=== PATIENT | male | born 1965 | race African-American/Black ===

== ENCOUNTER 2018-06-11 21:33 | Emergency (ER) | payer OTHER ==
[~2018-06-11] VITALS: Ht 177.8 cm; Wt 59.0 kg
[~2018-06-11 21:33] MED LIST: ACCUNEB SO1.25 MG/1 INH; CLONIDINE0.1 PO; HYDROCHLOROTHIA25 M2 PO; LIPITOR 20 MG T20 M1 PO; LISINOPRIL20 MG PO; LOPERAMIDE2 MG PO; NITROGLYCERIN0.4 MG SUBLING; NORCO 5-325 TA1 EACH PO; NORVASC10 MG PO; PERCOCET 5-3251 EACH PO; PLAVIX 75 MG TA75 M1 PO; RIBAVIRIN200 MG PO; TIVICAY50 MG PO; TOPROL XL100 MG PO; TRUVADA 200 MG1 EACH PO; VENTOLIN HFA 1818 GM INH; VIEKIRA PAK1 EACH PO
[2018-06-12 02:01] VITALS: BP 126/87
== END 2018-06-12 02:02 | disposition home or self-care (01) ==
LOC: ER 21:33
DX: S83.8X1A Sprain of other specified parts of right knee, initial encounter (principal); C49.21 Malignant neoplasm of connective and soft tissue of right lower limb, including hip; Z96.651 Presence of right artificial knee joint; F17.210 Nicotine dependence, cigarettes, uncomplicated; I10 Essential (primary) hypertension; J45.909 Unspecified asthma, uncomplicated; E78.00 Pure hypercholesterolemia, unspecified; K21.9 Gastro-esophageal reflux disease without esophagitis; E78.5 Hyperlipidemia, unspecified; Z21 Asymptomatic human immunodeficiency virus [HIV] infection status; Z88.5 Allergy status to narcotic agent; Z88.6 Allergy status to analgesic agent; Z88.8 Allergy status to other drugs, medicaments and biological substances; Z88.0 Allergy status to penicillin; Z88.2 Allergy status to sulfonamides; Z95.5 Presence of coronary angioplasty implant and graft; W18.39XA Other fall on same level, initial encounter; Y92.89 Other specified places as the place of occurrence of the external cause; Y93.89 Activity, other specified; Y99.8 Other external cause status

== ENCOUNTER 2019-02-21 03:28 | Emergency (ER) | payer OTHER ==
[~2019-02-21] VITALS: Ht 177.8 cm; Wt 72.6 kg
[2019-02-21 04:27] LABS: HEMOGLOBIN 11.4 gm/dL (14.0-18.0); MCH 31.4 pg (26.0-34.0); MCHC 33.6 g/dL (28.0-37.0); MCV 93.4 fL (80.0-100.0); PLATELET COUNT 240 thou/uL (150-400); RBC 3.64 mil/uL (4.50-6.00); RDW 14.6 % (10.5-14.5); WBC 10.3 thou/uL (4.0-11.0)
[2019-02-21 04:45] LABS: APTT 32.9 Seconds (24.5-32.8); INR 1.1
[2019-02-21 04:55] LABS: ALBUMIN 2.9 g/dL (3.4-5.0); ANION GAP 10 mmol/L (7-16); BUN 17 mg/dL (7-18); CALCIUM 9.4 mg/dL (8.5-10.1); CHLORIDE 99 mmol/L (98-107); CO2 27 mmol/L (21-32); CREATININE 1.7 mg/dL (0.7-1.3); GLUCOSE 117 mg/dL (74-106); SGOT 17 U/L (15-37); SGPT 10 U/L (30-65); SODIUM 136 mmol/L (136-145); TOTAL BILIRUBIN 0.3 mg/dL (<0.1-1.0); TOTAL PROTEIN 7.5 g/dL (6.4-8.2); TROPONIN-I <0.06 ng/mL (<0.06)
[2019-02-21 04:57] LABS: POTASSIUM 2.9 mmol/L (3.5-5.1)
[2019-02-21 05:01] LABS: ABSOLUTE NEUTROPHILS 4.6 thou/uL (1.4-8.2)
[2019-02-21] MEDS ORDERED: NORCO 5-325 TA1 EAC1 PO (06:11)
[2019-02-21] MEDS ORDERED: NORFLEX100 MG PO (06:11)
[2019-02-21] MEDS ORDERED: POTASSIUM20 PO (06:12)
[2019-02-21 06:39] VITALS: BP 172/102
--- NOTE | 2019-02-21 07:49 | EKG ---
[address] [place] [address] ELECTROCARDIOGRAM REPORT Name: AMRIT MONCADA [id number] Admission: 02/21/19 Attend Phys: Discharge: 02/21/19 Date of : 61 Report #: [id number] THIS REPORT FOR: //name// [facility] ED Test Date: 2019-02-21 Test Time: 04:27:43 Pat Name: AMRIT MONCADA Department: Room: Gender: Street Sweeper: [facility] : 1965 Requested By: Barrera Hogan Order Number: [id number] MD: Fabien Fofana Measurements Intervals [place] Rate: 68 P: 58 PA: 170 QRS: 22 QRSD: 89 T: -71 QT: 434 QTc: 462 Interpretive Statements Sinus rhythm Nonspecific ST and T wave abnormality Compared to ECG 02/29/2016 07:10:13 ST and T wave abnormality is now present Prolonged QT interval no longer present Electronically Signed On 02-21-2019 7:48:51 LOCK INSTALLER by Fabien Fofana [email or web address] <ELECTRONICALLY SIGNED> By: Fabien Fofana MD, [facility] 02/21/19 0748 0427 042 Fabien Fofana MD, [facility] /EPI
== END 2019-02-21 06:39 | disposition home or self-care (01) ==
LOC: ER 03:28
PROVIDERS: Emergency Medicine
DX: M43.6 Torticollis (principal); I82.B22 Chronic embolism and thrombosis of left subclavian vein; E87.6 Hypokalemia; E88.09 Other disorders of plasma-protein metabolism, not elsewhere classified; R07.89 Other chest pain; K21.9 Gastro-esophageal reflux disease without esophagitis; J45.909 Unspecified asthma, uncomplicated; I10 Essential (primary) hypertension; R79.89 Other specified abnormal findings of blood chemistry; F17.210 Nicotine dependence, cigarettes, uncomplicated; Z88.5 Allergy status to narcotic agent; Z88.2 Allergy status to sulfonamides; Z88.0 Allergy status to penicillin; Z88.6 Allergy status to analgesic agent; Z95.5 Presence of coronary angioplasty implant and graft; Z86.19 Personal history of other infectious and parasitic diseases; Z96.651 Presence of right artificial knee joint

== ENCOUNTER 2019-05-17 08:36 | Emergency (ER) | payer OTHER ==
[~2019-05-17] VITALS: Ht 175.3 cm; Wt 68.0 kg
[~2019-05-17 08:36] MED LIST changes: +NORCO 5-325 TA1 EAC1 PO; +NORFLEX100 MG PO; +POTASSIUM20 PO
[2019-05-17 10:10] VITALS: BP 163/99
[2019-05-17 10:13] LABS: HEMATOCRIT 40.3 % (42.0-52.0); HEMOGLOBIN 13.4 gm/dL (14.0-18.0); MCH 30.6 pg (26.0-34.0); MCHC 33.1 g/dL (28.0-37.0); MCV 92.3 fL (80.0-100.0); PLATELET COUNT 129 thou/uL (150-400); RBC 4.37 mil/uL (4.50-6.00); RDW 14.6 % (10.5-14.5); WBC 4.6 thou/uL (4.0-11.0)
[2019-05-17 10:23] LABS: CALCIUM 8.7 mg/dL (8.5-10.1); CREATININE 2.4 mg/dL (0.7-1.3); TROPONIN-I 0.25 ng/mL (<0.06)
[2019-05-17 10:42] LABS: POTASSIUM 2.9 mmol/L (3.5-5.1)
[2019-05-17 11:18] LABS: ABSOLUTE NEUTROPHILS 1.7 thou/uL (1.4-8.2); METAMYELOCYTES 1 %; PLATELET ESTIMATE NORMAL
[2019-05-18] MEDS ORDERED: XIFAXAN550 M1 PO ×2 (06:38→10:13)
--- NOTE | 2019-05-18 07:52 | EKG ---
[facility] [address] [place] [address] ELECTROCARDIOGRAM REPORT Name: ANTWANAMRIT Room #: DEP CHILO Reeves#: [id number] Admission: 05/17/19 Attend Phys: Discharge: 05/17/19 Date of : 61 Report #: [id number] THIS REPORT FOR: //name// [facility] ED Test Date: 2019-05-17 Test Time: 08:39:25 Pat Name: MARIT MONCADA Department: Room: Gender: Director Of Spa And Guest Experience: [facility] : 1965 Requested By: Danny Sherman Order Number: [id number] MD: Fabien Fofana Measurements Intervals [place] Rate: 96 P: 84 [place]: 139 QRS: 66 QRSD: 81 T: -77 QT: 412 QTc: 521 Interpretive Statements Sinus tachycardia Multiple premature complexes, supraven Left ventricular hypertrophy Abnormal T, consider ischemia, inferior leads Prolonged QT interval no previous ECGs available for comparison Electronically Signed On 05-18-2019 7:51:51 SPORTS INSTRUCTOR by Fabien Fofana [email or web address] <ELECTRONICALLY SIGNED> By: Fabien Fofana MD, [facility] 05/18/19 0751 D: 01/838 8 Fabien Fofana MD, FACC /EPI
[2019-05-18] MEDS ORDERED: [UNRECOGNIZED DRUG - OTHER] PO (09:41)
[2019-05-18] MEDS ORDERED: ONDANSETRON ODT4 MG PO (09:42)
[2019-05-18] MEDS ORDERED: EPIPEN 2-P0.3 MG/0.3 IM (09:44)
[2019-05-18] MEDS ORDERED: TRIUMEQ TABLET1 EACH PO (09:45)
[2019-05-18] MEDS ORDERED: PROAIR HFA8.5 GM INH (09:47)
[2019-05-18] MEDS ORDERED: AMITRIPTYLINE H10 M1 PO (09:48)
[2019-05-18] MEDS ORDERED: BACLOFEN 10MG T10 MG PO (09:49)
[2019-05-18] MEDS ORDERED: PULMICORT0.5 MG/2 M INH (09:50)
[2019-05-18] MEDS ORDERED: PERIDEX 0.12%473 M1 SWISH&SPIT (09:52)
[2019-05-18] MEDS ORDERED: PLAVIX 75 MG TA75 MG PO (09:53)
[2019-05-18] MEDS ORDERED: DIAZEPAM 5 MG5 M1 PO (09:54)
[2019-05-18] MEDS ORDERED: FLEXERIL PO (09:54)
[2019-05-18] MEDS ORDERED: BENTYL 20 MG TA20 M1 PO (09:55)
[2019-05-18] MEDS ORDERED: SENOKOT-S1 TA2 PO (09:57)
[2019-05-18] MEDS ORDERED: MARINOL5 MG PO (09:58)
[2019-05-18] MEDS ORDERED: FLONASE 0.05%50 MCG NASAL (09:59)
[2019-05-18] MEDS ORDERED: LACTULOSE PO (10:00)
[2019-05-18] MEDS ORDERED: LEVAQUIN 750 M750 MG PO (10:02)
[2019-05-18] MEDS ORDERED: REGLAN 10 MG TA10 MG PO (10:03)
[2019-05-18] MEDS ORDERED: OMEPRAZOLE40 MG PO (10:04)
[2019-05-18] MEDS ORDERED: OXYCODONE PO (10:06)
[2019-05-18] MEDS ORDERED: PERCOCET 10-321 EAC1 PO (10:07)
[2019-05-18] MEDS ORDERED: KLOR-CON 10 ER10 MEQ PO (10:08)
[2019-05-18] MEDS ORDERED: ZANTAC 150MG T150 M1 PO (10:09)
[2019-05-18] MEDS ORDERED: FLOMAX0.4 MG PO (10:11)
[2019-05-18] MEDS ORDERED: TRAZODONE 150150 M1 PO (10:12)
[2019-05-18] MEDS ORDERED: VIIBRYD40 MG PO (10:12)
[2019-05-18] MEDS ORDERED: LIPITOR 20 MG T20 M1 PO (16:38)
== END 2019-05-17 13:58 | disposition left against medical advice (07) ==
LOC: ER 08:36
PROVIDERS: Emergency Medicine
DX: I21.4 Non-ST elevation (NSTEMI) myocardial infarction (principal); B37.9 Candidiasis, unspecified; R79.89 Other specified abnormal findings of blood chemistry; I10 Essential (primary) hypertension; J45.909 Unspecified asthma, uncomplicated; E78.00 Pure hypercholesterolemia, unspecified; K21.9 Gastro-esophageal reflux disease without esophagitis; Z21 Asymptomatic human immunodeficiency virus [HIV] infection status; F17.210 Nicotine dependence, cigarettes, uncomplicated; Z88.5 Allergy status to narcotic agent; Z88.0 Allergy status to penicillin; Z88.6 Allergy status to analgesic agent; Z88.2 Allergy status to sulfonamides

== ENCOUNTER 2019-05-17 18:18 | Inpatient (IN) | payer OTHER ==
[~2019-05-17] VITALS: Ht 152.4 cm; Wt 61.7 kg
--- NOTE | ~2019-05-17 | HC ---
[facility] [address] CONSULTATION Name: ANTWANAMRIT Room #: 218-P ADM IN M.R.#: [id number] Admission: 05/17/19 Attend Phys: Efrain Gutierrez MD Discharge: Date of : 61 Report #: [id number] THIS REPORT FOR: //name// CC: ANTOLIN Gutierrez Physician staff DATE OF SERVICE: 05/17/2019 CARDIOLOGY CONSULT HISTORY OF PRESENT ILLNESS: The patient is a 53-year-old male. He apparently only has old records here and he apparently has a history of 2 stents placed in [place], [place] and he splits his time between here and [place] and back in 2013. He does not think he has had any recent medical followup, at least no Cardiology followup. He has been having pain on and off since he returned from [facility] 3 days ago, but had been somebody who might so had been sick on the plane and his sister obtained bronchitis from him. He denies fever or chills. His initial troponin, however, was 2.5 and then the repeat tonight after he left had AMA this morning and returned with chest pain is 2.9. Still he has some sort of low level of pain, but the EKG does not have a current of injury. He is allegedly compliant with medications, which are supposed to be metoprolol, Plavix, albuterol, amlodipine 10, clonidine 0.1 b.i.d., lisinopril 20, ALTHOUGH IT IS LISTED HE IS ALLERGIC TO LISINOPRIL and ribavirin 600 b.i.d. and Truvada 300 mg tablet every morning. PAST MEDICAL HISTORY: Positive for hypertension, hypercholesterolemia, although not taking any current cholesterol medicine for some reason, coronary artery disease with a limited infarct and 2 stents placed, he does not know which vessel in 2013. Musculoskeletal issues, reflux, nonalcoholic cirrhosis, HIV positive, umbilical hernia repair, history prior tobacco use and anterior neck fusion. ALLERGIES: CODEINE, NSAIDS, PENICILLIN, SULFA, TRAMADOL, ACETAMINOPHEN, ASPIRIN, I will question this; LIDOCAINE, CODEINE, TORADOL. SOCIAL HISTORY: He has children. He lives in both [place] and [place]. He has a sister who is in the room who lives next to him and helps him. He is a tobacco user, although he states he has quit 3 days ago. No alcohol use, no drug use currently. FAMILY HISTORY: Positive for premature coronary artery disease. REVIEW OF SYSTEMS: Negative except for stated above, some nocturia and recent exposure to possible influenza. [address] [address] CONSULTATION Name: AMRIT MONCADA Room #: 218-P ADM IN M.R.#: [id number] Admission: 05/17/19 Attend Phys: Efrain Gutierrez MD Discharge: Date of : 61 Report #: [id number] LABORATORY DATA: Troponin 2.9 tonight. Creatinine was 2.4. Troponin initially 0.16, 0.25 now, there is some question. So, these are very equivocal troponin in light of the renal insufficiency. PHYSICAL EXAMINATION: GENERAL: He is alert. He does not seem to be in distress, although he states he does have some chest pain. VITAL SIGNS: Blood pressure 158/100, pulse is 70s. HEENT: Eyes show xanthelasmas. Pharynx is clear. NECK: Shows preserved upstrokes without JVD. LUNGS: Clear anteriorly. CARDIOVASCULAR: Regular rate and rhythm, S1, S2 distant. ABDOMEN: Slender, nontender, slight discomfort in the epigastric. EXTREMITIES: Show no edema. His pulse is intact. NEUROLOGIC: Nonfocal. SKIN: Warm and dry without xanthoma or ulcer. MUSCULOSKELETAL: No gross joint deformity. ASSESSMENT: 1. Chest pain of unclear etiology with equivocal troponin. 2. Troponin elevation, trivial in light of renal insufficiency, not diagnostic for a true ischemic event. 3. Coronary artery disease by history with prior stents. 4. Hypertension. 5. Suspected hypercholesterolemia. 6. Human immunodeficiency virus positive. 7. Suspected relative noncompliance. RECOMMENDATIONS AND PLAN: We will give fluids for the renal. 8. Chronic kidney disease, acute on chronic. We will restart his blood pressure medications including antiplatelet therapy, EKG, troponin in the a.m. and echo Doppler in the a.m. With this equivocal troponin findings now, I would favor stress testing over catheterization, particularly in light of his renal insufficiency, so we will have to be careful of contrast, unless should be a change in the lab or the EKG, so further recommendations in the a.m. Discussed with the patient and his family. Thank you for asking me to assist in the care of this patient. By: [phone] /nt
--- NOTE | ~2019-05-17 | EKG ---
[place] [address] [address] [facility] [employer] [place] [address] ELECTROCARDIOGRAM REPORT Name: AMRIT MONCADA Room #: 218-P ADM IN M.R.#: [id number] Admission: 05/17/19 Attend Phys: Efrain Gutierrez MD Discharge: Date of : 61 Report #: [id number] THIS REPORT FOR: //name// [facility] Test Date: 2019-05-18 Test Time: 08:23:19 Pat Name: AMRIT MONCADA Department: Room: 218 P Gender: M Glass Furnace Tender: Azeb MCCORMACK : 1965 Requested By: Ariadna Griffiths Order Number: [id number] MD: Measurements Intervals [place] Rate: 61 P: 57 [place]: 159 QRS: 15 QRSD: 86 T: -89 QT: 455 QTc: 459 Interpretive Statements Sinus rhythm Nonspecific T abnormalities, lateral leads Compared to ECG 05/17/2019 21:42:37 T-wave abnormality now present [email or web address] By: 2 2 Epiphany Epiphany, /EPI
[2019-05-17 20:36] VITALS: BP 158/103
[2019-05-17 21:54] LABS: CREATININE 2.2 mg/dL (0.7-1.3); MAGNESIUM 2.4 mg/dL (1.8-2.4)
[2019-05-17 21:55] LABS: POTASSIUM 2.9 mmol/L (3.5-5.1)
[2019-05-17 22:18] VITALS: BP 168/100
[2019-05-17 22:19] LABS: CHOLESTEROL 151 mg/dL (<200); HDL CHOLESTEROL 40 mg/dL (>40); LDL CHOLESTEROL 64 mg/dL (<100); TC:HDL 3.8 Ratio (Not establshd); TRIGLYCERIDE 235 mg/dL (<150); VLDL 47 mg/dL (<40)
[2019-05-17 22:21] LABS: SERUM ASSESSMENT Clear
[2019-05-18 01:38] VITALS: BP 185/111
[2019-05-18 05:31] VITALS: BP 146/98
[2019-05-18] MEDS ORDERED: XIFAXAN550 M1 PO ×2 (06:38→10:13)
[2019-05-18 07:30] LABS: CALCIUM 8.4 mg/dL (8.5-10.1); CREATININE 1.6 mg/dL (0.7-1.3); TROPONIN-I 0.09 ng/mL (<0.06)
[2019-05-18 07:32] LABS: POTASSIUM 3.9 mmol/L (3.5-5.1)
--- NOTE | 2019-05-18 07:58 | EKG ---
[facility] [address] [email or web address] [address] ELECTROCARDIOGRAM REPORT Name: MONCADAAMRIT Room #: 218-P ADM IN M.R.#: [id number] Admission: 05/17/19 Attend Phys: Efrain Gutierrez MD Discharge: Date of : 61 Report #: [id number] THIS REPORT FOR: //name// [facility] Test Date: 2019-05-17 Test Time: 21:42:37 Pat Name: AMRIT MONCADA Department: Room: 218 P Gender: M Pneumatic Press Hand: Connor WILKINS : 1965 Requested By: Moody Colby Order Number: [id number] MD: Fabien Fofana Measurements Intervals [place] Rate: 78 P: 76 [place]: 153 QRS: 35 QRSD: 89 T: -54 QT: 435 QTc: 496 Interpretive Statements Sinus rhythm Probable LVH with secondary repol abnrm Borderline prolonged QT interval Compared to ECG 02/21/2019 04:27:43 No significant change was found Electronically Signed On 05-18-2019 7:57:20 CAPTAIN/AIRLINE PILOT by Fabien Fofana [email or web address] <ELECTRONICALLY SIGNED> By: Fabien Fofana MD, [facility] 05/18/19 0757 214 41 Fabien Fofana MD, [facility] /EPI
[2019-05-18 08:00] VITALS: BP 155/93
--- NOTE | 2019-05-18 08:00 | EKG ---
[address] [address] [facility] [place] [address] ELECTROCARDIOGRAM REPORT Name: AMRIT MONCADA Room #: 218-P ADM IN M.R.#: [id number] Admission: 05/17/19 Attend Phys: Efrain Gutierrez MD Discharge: Date of : 61 Report #: [id number] THIS REPORT FOR: //name// [facility] ED Test Date: 2019-05-17 Test Time: 18:26:13 Pat Name: AMRIT MONCADA Department: Room: 218 Gender: M Pole Cutter: GORDY : 1965 Requested By: Fiorella Alan Order Number: [id number] MD: Dylan Corley Measurements Intervals [place] Rate: 87 P: 75 [place]: 136 QRS: 60 QRSD: 86 T: -89 QT: 366 QTc: 441 Interpretive Statements Sinus rhythm Atrial premature complexes Probable left atrial enlargement Left ventricular hypertrophy Abnormal T, consider ischemia, inferior leads Compared to ECG 02/21/2019 04:27:43 Electronically Signed On 05-18-2019 7:59:23 ELECTRONIC TRAIN CONTROL TECHNICIAN by Dylan Corley [email or web address] <ELECTRONICALLY SIGNED> By: Dylan Corley MD 05/18/19 0759 25 25 Dylan Corley MD /RAÚL
[2019-05-18] MEDS ORDERED: [UNRECOGNIZED DRUG - OTHER] PO (09:41)
[2019-05-18] MEDS ORDERED: ONDANSETRON ODT4 MG PO (09:42)
[2019-05-18] MEDS ORDERED: EPIPEN 2-P0.3 MG/0.3 IM (09:44)
[2019-05-18] MEDS ORDERED: TRIUMEQ TABLET1 EACH PO (09:45)
[2019-05-18] MEDS ORDERED: PROAIR HFA8.5 GM INH (09:47)
[2019-05-18] MEDS ORDERED: AMITRIPTYLINE H10 M1 PO (09:48)
[2019-05-18] MEDS ORDERED: BACLOFEN 10MG T10 MG PO (09:49)
[2019-05-18] MEDS ORDERED: PULMICORT0.5 MG/2 M INH (09:50)
[2019-05-18] MEDS ORDERED: PERIDEX 0.12%473 M1 SWISH&SPIT (09:52)
[2019-05-18] MEDS ORDERED: PLAVIX 75 MG TA75 MG PO (09:53)
[2019-05-18] MEDS ORDERED: DIAZEPAM 5 MG5 M1 PO (09:54)
[2019-05-18] MEDS ORDERED: FLEXERIL PO (09:54)
[2019-05-18] MEDS ORDERED: BENTYL 20 MG TA20 M1 PO (09:55)
[2019-05-18] MEDS ORDERED: SENOKOT-S1 TA2 PO (09:57)
[2019-05-18] MEDS ORDERED: MARINOL5 MG PO (09:58)
[2019-05-18] MEDS ORDERED: FLONASE 0.05%50 MCG NASAL (09:59)
[2019-05-18] MEDS ORDERED: LACTULOSE PO (10:00)
[2019-05-18] MEDS ORDERED: LEVAQUIN 750 M750 MG PO (10:02)
[2019-05-18] MEDS ORDERED: REGLAN 10 MG TA10 MG PO (10:03)
[2019-05-18] MEDS ORDERED: OMEPRAZOLE40 MG PO (10:04)
[2019-05-18] MEDS ORDERED: OXYCODONE PO (10:06)
[2019-05-18] MEDS ORDERED: PERCOCET 10-321 EAC1 PO (10:07)
[2019-05-18] MEDS ORDERED: KLOR-CON 10 ER10 MEQ PO (10:08)
[2019-05-18] MEDS ORDERED: ZANTAC 150MG T150 M1 PO (10:09)
[2019-05-18] MEDS ORDERED: FLOMAX0.4 MG PO (10:11)
[2019-05-18] MEDS ORDERED: VIIBRYD40 MG PO (10:12)
[2019-05-18] MEDS ORDERED: TRAZODONE 150150 M1 PO (10:12)
--- NOTE | 2019-05-18 11:01 | 2DMMODE ---
[facility] [address] [place] [address] 2 D/M-MODE ECHOCARDIOGRAM Name: AMRIT MONCADA Room #: 218-P ADM IN M.R.#: [id number] Admission: 05/17/19 Attend Phys: Efrain Gutierrez MD Discharge: Date of : 61 Report #: [id number] THIS REPORT FOR: //name// APPROVED REPORT Study performed: 05/18/2019 09:32:29 EXAM: Comprehensive 2D, Doppler, and color-flow Echocardiogram Patient Location: Bedside Room #: 218 Status: routine BSA: 1.75 HR: 56 bpm BP: 155/93 mmHg Rhythm: Bradycardia Other Information Study Quality: Good Indications CAD Elevated Troponin Chest Pain Hypertension/HDD 2D Dimensions RVDd: 38.55 mm IVSd: 13.05 (7-11mm) LVOT Diam: 21.23 (18-24mm) LVDd: 49.04 mm PWd: 12.68 (7-11mm) Ascending Ao: 27.44 (22-36mm) LVDs: 37.33 (25-40mm) Aortic Root: 26.86 mm IVC: 17.00 mm Volumes Left Atrial Volume (Systole) Single Plane 4CH: 59.88 mL Single Plane 2CH: 53.30 mL LA ESV Index: 37.00 mL/m2 Aortic Valve AoV Peak Maldonado.: 1.20 m/s AO Peak Gr.: 5.80 mmHg LVOT Max P.96 mmHg LVOT Max V: 0.99 m/s BERTA Vmax: 2.92 cm2 Mitral Valve [facility] [address] [place] [address] 2 D/M-MODE ECHOCARDIOGRAM Name: AMRIT MONCADA Room #: 218-P [facility] IN Sundar.#: [id number] Admission: 05/17/19 Attend Phys: Efrain Gutierrez MD Discharge: Date of : 61 Report #: [id number] E/A Ratio: 0.7 MV Decel. Time: 428.93 ms MV E Max Maldonado.: 0.38 m/s MV A Maldonado.: 0.53 m/s MV PHT: 124.39 ms IVRT: 184.54 ms Pulmonary Valve PV Peak Maldonado.: 0.63 m/s PV Peak Gr.: 1.58 mmHg Pulmonary Vein P Vein S: 0.43 m/s P Vein A: 0.23 m/s P Vein D: 0.26 m/s P Vein A Dur.: 92.3 msec P Vein S/D Ratio: 1.65 Left Ventricle The left ventricle is normal size. There is normal LV segmental wall motion. Mild concentric left ventricular hypertrophy. Left ventricular systolic function is at the lower limits of normal. LVEF is 50%. Mild diastolic dysfunction is present (impaired relaxation pattern). Right Ventricle The right ventricle is normal size. The right ventricular systolic function is normal. Atria Left atrium is dilated. The right atrium size is normal. Aortic Valve The aortic valve is normal in structure. Trace aortic regurgitation. There is no aortic valvular stenosis. Mitral Valve The mitral valve is normal in structure. No mitral regurgitation. No evidence of mitral valve stenosis. Tricuspid Valve The tricuspid valve is normal in structure. There is no tricuspid valve regurgitation noted. Pulmonic Valve The pulmonary valve is normal in structure. There is no pulmonic valvular regurgitation. Great Vessels [facility] [address] [place] [address] 2 D/M-MODE ECHOCARDIOGRAM Name: AMRIT MONCADA Room #: 218-P ADM IN M.R.#: [id number] Admission: 05/17/19 Attend Phys: Efrain Gutierrez MD Discharge: Date of : 61 Report #: [id number] The aortic root is normal in size. IVC is normal in size and collapses >50% with inspiration. Pericardium There is no pericardial effusion. <Conclusion> Left ventricular systolic function is at the lower limits of normal. There is normal LV segmental wall motion. Mild concentric left ventricular hypertrophy. LVEF is 50%. Mild diastolic dysfunction. The aortic valve is normal in structure. Trace aortic regurgitation, no stenosis. The mitral valve is normal in structure. No mitral regurgitation Pulmonary artery pressure could not be reliably ascertained. There is no pericardial effusion. <ELECTRONICALLY SIGNED> By: Fabien Fofana MD, FACC 05/18/19 1100 1100 99 Fabien Fofana MD, [facility] /INF
[2019-05-18 14:00] VITALS: BP 178/111
[2019-05-18 15:30] VITALS: BP 147/86
[2019-05-18] MEDS ORDERED: LIPITOR 20 MG T20 M1 PO (16:38)
[2019-05-18 16:55] VITALS: BP 178/111
[2019-05-19 08:57] LABS: GLYCOHEMOGLOBIN (HGB A1C) 5.7 % (4.8-5.6)
== END 2019-05-18 18:16 | disposition home or self-care (01) | DRG 281 ==
LOC: ER 18:18 → EROBS 20:01 → 2N 20:56 → ENTRNSPT 05-18 18:00 → 2N 05-18 18:16
PROVIDERS: Nurse Practitioner Family; ADMIT Internal Medicine
DX: I21.4 Non-ST elevation (NSTEMI) myocardial infarction (principal); N17.9 Acute kidney failure, unspecified; B37.0 Candidal stomatitis; J45.909 Unspecified asthma, uncomplicated; E78.00 Pure hypercholesterolemia, unspecified; K21.9 Gastro-esophageal reflux disease without esophagitis; K74.60 Unspecified cirrhosis of liver; E87.6 Hypokalemia; E83.42 Hypomagnesemia; I12.9 Hypertensive chronic kidney disease with stage 1 through stage 4 chronic kidney disease, or unspecified chronic kidney disease; B37.9 Candidiasis, unspecified; I25.10 Atherosclerotic heart disease of native coronary artery without angina pectoris; F17.210 Nicotine dependence, cigarettes, uncomplicated; N18.9 Chronic kidney disease, unspecified; Z85.89 Personal history of malignant neoplasm of other organs and systems; Z92.21 Personal history of antineoplastic chemotherapy; Z92.3 Personal history of irradiation; Z83.3 Family history of diabetes mellitus; Z80.1 Family history of malignant neoplasm of trachea, bronchus and lung; I25.2 Old myocardial infarction; Z95.5 Presence of coronary angioplasty implant and graft; Z86.19 Personal history of other infectious and parasitic diseases; Z88.6 Allergy status to analgesic agent; Z88.0 Allergy status to penicillin; Z88.2 Allergy status to sulfonamides; Z88.8 Allergy status to other drugs, medicaments and biological substances; Z82.49 Family history of ischemic heart disease and other diseases of the circulatory system; Z80.51 Family history of malignant neoplasm of kidney; Z80.8 Family history of malignant neoplasm of other organs or systems; Z71.6 Tobacco abuse counseling; Z28.21 Immunization not carried out because of patient refusal; Z79.899 Other long term (current) drug therapy
CPT/HCPCS: 10081

== ENCOUNTER 2019-06-03 12:13 | Emergency (ER) | payer OTHER ==
[~2019-06-03] VITALS: Ht 177.8 cm; Wt 61.2 kg
[~2019-06-03 12:13] MED LIST changes: +AMITRIPTYLINE H10 M1 PO; +BACLOFEN 10MG T10 MG PO; +BENTYL 20 MG TA20 M1 PO; +DIAZEPAM 5 MG5 M1 PO; +EPIPEN 2-P0.3 MG/0.3 IM; +FLEXERIL PO; +FLOMAX0.4 MG PO; +FLONASE 0.05%50 MCG NASAL; +KLOR-CON 10 ER10 MEQ PO; +LACTULOSE PO; +LEVAQUIN 750 M750 MG PO; +MARINOL5 MG PO; +OMEPRAZOLE40 MG PO; +ONDANSETRON ODT4 MG PO; +OXYCODONE PO; +PERCOCET 10-321 EAC1 PO; +PERIDEX 0.12%473 M1 SWISH&SPIT; +PLAVIX 75 MG TA75 MG PO; +PROAIR HFA8.5 GM INH; +PULMICORT0.5 MG/2 M INH; +REGLAN 10 MG TA10 MG PO; +SENOKOT-S1 TA2 PO; +TRAZODONE 150150 M1 PO; +TRIUMEQ TABLET1 EACH PO; +VIIBRYD40 MG PO; +XIFAXAN550 M1 PO; +ZANTAC 150MG T150 M1 PO; +[UNRECOGNIZED DRUG - OTHER] PO
[2019-06-03 13:23] LABS: INR 1.1; PROTIME 11.2 Seconds (9.3-11.4)
[2019-06-03] MEDS ORDERED: NORCO 5-325 TA1 EAC1 PO (13:27)
[2019-06-03 13:54] VITALS: BP 169/103
== END 2019-06-03 13:54 | disposition home or self-care (01) ==
LOC: ER 12:13
PROVIDERS: Nurse Practitioner Family
DX: S93.491A Sprain of other ligament of right ankle, initial encounter (principal); M25.461 Effusion, right knee; R79.1 Abnormal coagulation profile; I10 Essential (primary) hypertension; J45.909 Unspecified asthma, uncomplicated; E78.00 Pure hypercholesterolemia, unspecified; I25.2 Old myocardial infarction; K21.9 Gastro-esophageal reflux disease without esophagitis; F17.210 Nicotine dependence, cigarettes, uncomplicated; Z98.890 Other specified postprocedural states; Z88.6 Allergy status to analgesic agent; Z88.5 Allergy status to narcotic agent; Z88.2 Allergy status to sulfonamides; Z88.0 Allergy status to penicillin; W00.0XXA Fall on same level due to ice and snow, initial encounter; Y92.89 Other specified places as the place of occurrence of the external cause; Y93.89 Activity, other specified; Y99.8 Other external cause status

== ENCOUNTER 2019-08-25 22:54 | Emergency (ER) | payer OTHER ==
[~2019-08-25] VITALS: Ht 177.8 cm; Wt 61.2 kg
[2019-08-25 23:48] LABS: HEMATOCRIT 27.8 % (42.0-52.0); HEMOGLOBIN 9.3 gm/dL (14.0-18.0); MCH 31.7 pg (26.0-34.0); MCHC 33.5 g/dL (28.0-37.0); MCV 94.7 fL (80.0-100.0); PLATELET COUNT 66 thou/uL (150-400); RBC 2.93 mil/uL (4.50-6.00); RDW 15.2 % (10.5-14.5); WBC 16.1 thou/uL (4.0-11.0)
[2019-08-25 23:57] LABS: CALCIUM 7.7 mg/dL (8.5-10.1); CREATININE 1.6 mg/dL (0.7-1.3); POTASSIUM 3.3 mmol/L (3.5-5.1)
[2019-08-26 00:02] LABS: ALBUMIN 2.8 g/dL (3.4-5.0); TOTAL BILIRUBIN 0.1 mg/dL (<0.1-1.0); TOTAL PROTEIN 6.3 g/dL (6.4-8.2)
[2019-08-26 00:19] VITALS: BP 169/98
[2019-08-26 01:02] LABS: METAMYELOCYTES 2 %; NUCLEATED RBCS 2 /100WBC
[2019-08-26 01:03] LABS: PLATELET ESTIMATE DECREASED
--- NOTE | 2019-08-26 08:44 | EKG ---
[facility] [place] [address] ELECTROCARDIOGRAM REPORT Name: VALARIE MONCADARON Room #: DEP CHILO Reeves#: [id number] Admission: 08/25/19 Attend Phys: Discharge: 08/26/19 Date of : 61 Report #: [id number] THIS REPORT FOR: cc: BRAD - Mela family physician/PCP BRAD - Mela family physician/PCP Fabien Fofana MD [facility] THIS REPORT FOR: //name// [facility] ED Test Date: 2019-08-25 Test Time: 23:31:27 Pat Name: AMRIT MONCADA Department: Room: Gender: Kosher Butcher: ANUPAMA : 1965 Requested By: Augustus Angelo Order Number: [id number] MD: Fabien Fofana Measurements Intervals [place] Rate: 78 P: 68 [place]: 143 QRS: 34 QRSD: 86 T: -49 QT: 445 QTc: 507 Interpretive Statements Sinus rhythm Left ventricular hypertrophy Nonspecific T abnormalities, inferior leads Prolonged QT interval Baseline wander in lead(s) V5 Compared to ECG 05/18/2019 08:23:19 Prolonged QT interval now present Electronically Signed On 08-26-2019 8:42:47 CDT by Fabien Fofana [email or web address] <ELECTRONICALLY SIGNED> By: Fabien Fofana MD, [facility] 08/26/19 0842 2331 2331 Fabien Fofana MD, [facility] /EPI
== END 2019-08-26 00:20 | disposition home or self-care (01) ==
LOC: ER 22:54
PROVIDERS: Emergency Medicine
DX: K64.4 Residual hemorrhoidal skin tags (principal); M79.651 Pain in right thigh; M79.652 Pain in left thigh; M54.9 Dorsalgia, unspecified; I25.10 Atherosclerotic heart disease of native coronary artery without angina pectoris; I25.2 Old myocardial infarction; I10 Essential (primary) hypertension; J45.909 Unspecified asthma, uncomplicated; E78.00 Pure hypercholesterolemia, unspecified; K21.9 Gastro-esophageal reflux disease without esophagitis; F17.210 Nicotine dependence, cigarettes, uncomplicated; Z88.6 Allergy status to analgesic agent; Z88.1 Allergy status to other antibiotic agents; Z88.0 Allergy status to penicillin; Z88.2 Allergy status to sulfonamides; Z88.4 Allergy status to anesthetic agent; Z91.011 Allergy to milk products; Z88.8 Allergy status to other drugs, medicaments and biological substances; Z79.899 Other long term (current) drug therapy

== ENCOUNTER 2019-10-07 00:45 | Inpatient (IN) | payer OTHER ==
[2019-10-07] VITALS (7 sets, daily range): BP systolic 121–151; BP diastolic 68–101
[~2019-10-07] VITALS: Ht 177.8 cm; Wt 74.7 kg
[2019-10-07 01:48] LABS: HEMATOCRIT 26.1 % (42.0-52.0); HEMOGLOBIN 8.5 gm/dL (14.0-18.0); MCH 32.2 pg (26.0-34.0); MCHC 32.7 g/dL (28.0-37.0); MCV 98.5 fL (80.0-100.0); PLATELET COUNT 64 thou/uL (150-400); RBC 2.65 mil/uL (4.50-6.00); RDW 19.4 % (10.5-14.5); WBC 25.5 thou/uL (4.0-11.0)
[2019-10-07 02:02] LABS: ALBUMIN 2.7 g/dL (3.4-5.0); CALCIUM 8.5 mg/dL (8.5-10.1); CREATININE 1.6 mg/dL (0.7-1.3); TOTAL BILIRUBIN 0.3 mg/dL (0.2-1.0)
[2019-10-07 03:01] LABS: POTASSIUM 2.6 mmol/L (3.5-5.1)
[2019-10-07 04:04] LABS: ABSOLUTE NEUTROPHILS 18.6 thou/uL (1.4-8.2); ANISOCYTOSIS 2+; LARGE PLATELETS FEW; METAMYELOCYTES 4 %; MYELOCYTES 8 %; PLATELET ESTIMATE DECREASED; POLYCHROMASIA 1+; TOXIC GRANULATION 3+
[2019-10-07] MEDS ORDERED: LIPITOR80 MG PO (11:24)
[2019-10-07] MEDS ORDERED: BENZ O STHETIC RECTAL (11:25)
[2019-10-07] MEDS ORDERED: PULMICORT0.5 MG/2 M INH (11:26)
[2019-10-07] MEDS ORDERED: CARBAMAZEPINE100 M2 PO (11:27)
[2019-10-07] MEDS ORDERED: PLAVIX 75 MG TA75 MG PO (11:28)
[2019-10-07] MEDS ORDERED: CARVEDILOL12.5 MG PO (11:28)
[2019-10-07] MEDS ORDERED: DIAZEPAM 5 MG5 M1 PO (11:29)
[2019-10-07] MEDS ORDERED: DRONABINOL10 MG PO (11:29)
[2019-10-07] MEDS ORDERED: GABAPENTIN 100100 MG PO (11:30)
[2019-10-07] MEDS ORDERED: ANUSOL-HC30 GM RECTAL (11:32)
[2019-10-07] MEDS ORDERED: OMEPRAZOLE40 MG PO (11:33)
[2019-10-07] MEDS ORDERED: PROMETHAZINE HC25 M1 PO (11:38)
[2019-10-07] MEDS ORDERED: TIZANIDINE HCL4 M1 PO (11:39)
[2019-10-07] MEDS ORDERED: DESYREL150 MG PO (11:44)
[2019-10-08 05:44] LABS: HEMATOCRIT 21.9 % (42.0-52.0); HEMOGLOBIN 7.2 gm/dL (14.0-18.0); MCH 32.9 pg (26.0-34.0); MCHC 32.8 g/dL (28.0-37.0); MCV 100.1 fL (80.0-100.0); RBC 2.19 mil/uL (4.50-6.00); RDW 20.3 % (10.5-14.5); WBC 27.8 thou/uL (4.0-11.0)
[2019-10-08 06:13] LABS: CALCIUM 7.7 mg/dL (8.5-10.1); CREATININE 1.6 mg/dL (0.7-1.3); POTASSIUM 3.4 mmol/L (3.5-5.1)
[2019-10-08 09:32] VITALS: BP 147/85
[2019-10-08] MEDS ORDERED: FIRVANQ50 MG/1 ML PO (12:25)
[2019-10-08 13:00] VITALS: BP 147/85
== END 2019-10-08 15:09 | disposition home or self-care (01) | DRG 372 ==
LOC: ER 00:45 → EROBS 04:29 → 4W 04:59
PROVIDERS: Emergency Medicine; Nurse Practitioner Family; ADMIT Hospitalist; ATTEND Hospitalist
DX: A04.72 Enterocolitis due to Clostridium difficile, not specified as recurrent (principal); C34.90 Malignant neoplasm of unspecified part of unspecified bronchus or lung; N17.9 Acute kidney failure, unspecified; I25.10 Atherosclerotic heart disease of native coronary artery without angina pectoris; I10 Essential (primary) hypertension; J45.909 Unspecified asthma, uncomplicated; E78.00 Pure hypercholesterolemia, unspecified; K21.9 Gastro-esophageal reflux disease without esophagitis; K74.60 Unspecified cirrhosis of liver; E87.6 Hypokalemia; D72.829 Elevated white blood cell count, unspecified; E78.5 Hyperlipidemia, unspecified; B19.20 Unspecified viral hepatitis C without hepatic coma; G89.4 Chronic pain syndrome; B37.9 Candidiasis, unspecified; Z95.5 Presence of coronary angioplasty implant and graft; I25.2 Old myocardial infarction; Z88.6 Allergy status to analgesic agent; Z88.0 Allergy status to penicillin; Z88.2 Allergy status to sulfonamides; Z88.8 Allergy status to other drugs, medicaments and biological substances; Z71.6 Tobacco abuse counseling; Z79.891 Long term (current) use of opiate analgesic
CPT/HCPCS: 10040

== ENCOUNTER 2019-12-06 19:08 | Inpatient (IN) | payer OTHER ==
[~2019-12-06] VITALS: Ht 177.8 cm; Wt 76.7 kg
[~2019-12-06 19:08] MED LIST changes: +ANUSOL-HC30 GM RECTAL; +BENZ O STHETIC RECTAL; +CARBAMAZEPINE100 M2 PO; +CARVEDILOL12.5 MG PO; +DESYREL150 MG PO; +DRONABINOL10 MG PO; +FIRVANQ50 MG/1 ML PO; +GABAPENTIN 100100 MG PO; +LIPITOR80 MG PO; +PROMETHAZINE HC25 M1 PO; +TIZANIDINE HCL4 M1 PO
[2019-12-06 19:35] VITALS: BP 162/82
[2019-12-06 21:40] LABS: URINE BILIRUBIN NEGATIVE (Negative); URINE BLOOD TRACE (Negative); URINE CLARITY CLEAR; URINE COLOR YELLOW; URINE GLUCOSE-RANDOM* NEGATIVE (Negative); URINE KETONES NEGATIVE (Negative); URINE LEUKOCYTES-REFLEX NEGATIVE (Negative); URINE NITRITE-REFLEX NEGATIVE (Negative); URINE PROTEIN (DIPSTICK) 2+ (Negative); URINE SPECIFIC GRAVITY >= 1.030 (1.005-1.035); URINE UROBILINOGEN 0.2 E.U./dl (0.2-1.0)
[2019-12-06 21:41] LABS: BASOPHILS 0.4 % (0.0-2.0); HEMATOCRIT 25.3 % (42.0-52.0); HEMOGLOBIN 8.4 gm/dL (14.0-18.0); LYMPHOCYTES 9.1 % (24.0-44.0); MCH 34.8 pg (26.0-34.0); MCHC 33.3 g/dL (28.0-37.0); MCV 104.4 fL (80.0-100.0); MONOCYTES 3.1 % (1.0-8.0); PLATELET COUNT 191 thou/uL (150-400); POLYS 87.4 % (36.0-66.0); RBC 2.42 mil/uL (4.50-6.00); RDW 18.2 % (10.5-14.5); WBC 17.2 thou/uL (4.0-11.0)
[2019-12-06 21:49] LABS: HYALINE CASTS 0-3 Few /LPF (None Seen); MUCUS 0-3 Light strn/LPF (None Seen); SQUAMOUS None Seen /LPF (0-3)
[2019-12-06 21:50] LABS: AMORPHOUS URATES Moderate /LPF (None Seen); BACTERIA-REFLEX None Seen /HPF (None Seen); URINE RBC 3-10 Few /HPF (0-2); URINE WBC-REFLEX 0-5 Rare /HPF (0-5)
[2019-12-06 21:51] LABS: CRYSTALS None Seen /LPF (None Seen); TRANSITIONAL EPITHEL CELL >10 Many /LPF (None Seen)
[2019-12-06 22:04] LABS: CALCIUM 8.2 mg/dL (8.5-10.1); CREATININE 1.6 mg/dL (0.7-1.3); POTASSIUM 3.8 mmol/L (3.5-5.1)
[2019-12-06 22:10] LABS: ALBUMIN 2.4 g/dL (3.4-5.0); TOTAL BILIRUBIN 0.3 mg/dL (0.2-1.0); TOTAL PROTEIN 6.1 g/dL (6.4-8.2)
[2019-12-07 01:21] VITALS: BP 165/88
[2019-12-07 02:53] VITALS: BP 163/82
[2019-12-07 03:45] VITALS: BP 155/77
--- NOTE | 2019-12-07 05:30 | NUR ---
Pt arrived from ED at 0315. A/OX4,VSS. C/o pain to abd that's constant. Medicated per EMAR with some relief reported. Denies N/V,pt having diarrhea with foul smell. Special contact isolation initiated. Pt has a Port-a-cath on right chest accessed in the ER IVF infusing w/o problems noted. Fall precautions inititiated.
[2019-12-07 07:44] VITALS: BP 167/67
--- NOTE | 2019-12-07 10:47 | NUR ---
PT ADMITTED RELATED TO ABD PAIN,DIARRHEA,COLITIS,CDIFF. CM REVIEWED CHART AND SPOKE WITH CARE TEAM. CM CALLED AND SPOKE WITH CARE TEAM THIS DAY. PT APPEARED TO BE A&O X4. CM ROLE INTRODUCED. PT RESIDES IN AN APARTMENT WITH HIS SISTER AND SON IN [facility]. PT INDICATED THERE ARE NO STEPS TO ENTER AND NO STEPS INSIDE. PT INDICATED HE HAS A FWW AND A CANE FOR USE AT HOME. PT ALSO HAS A NEUBLIZER AND A CPAP FOR HOME USE THROUGH [facility]. PT'S PHYSICIANS ARE DR. ENCINAS AND DR MUÑOZ. PT INDICATED HE ANTICIPATES RETURNING HOME ONCE MEDICALLY STABLE. CM TO FOLLOW INDICATED WITH DC PLANNING.
--- NOTE | 2019-12-07 19:49 | NUR ---
Assumed pt care in the am, had a bm at shift change. Vs stable, pain managed with medications. Pt was upset and does not want to be on clear liquids wants to eat and have his sister bring him some food. Upset as well since the MD had not come to see him today. Endorsed to the night nurse.
[2019-12-07 20:07] VITALS: BP 144/79
--- NOTE | 2019-12-08 01:29 | NUR ---
ASSUMED CARE AT 1900. PT IS A/O X4. PT WAS VERY TEARFUL WITH HIGH ANXIETY DURING ASSESSMENT. C/O PAIN TO GENERALIZED ABDOMEN AND DIARRHEA. PRN PAIN MEDICATION GIVEN ORDERED. AT THIS TIME, PT IS IN HIS BED LYING DOWN AND APPEARS TO BE SLEEPING. WILL CONTINUE TO MONITOR.
[2019-12-08 06:18] LABS: CALCIUM 7.5 mg/dL (8.5-10.1); CREATININE 1.4 mg/dL (0.7-1.3); HEMOGLOBIN 6.8 gm/dL (14.0-18.0); POTASSIUM 3.4 mmol/L (3.5-5.1)
[2019-12-08 06:20] LABS: HEMATOCRIT 20.7 % (42.0-52.0); MCH 34.8 pg (26.0-34.0); MCHC 32.9 g/dL (28.0-37.0); RBC 1.95 mil/uL (4.50-6.00); RDW 18.1 % (10.5-14.5); WBC 4.6 thou/uL (4.0-11.0)
[2019-12-08 07:30] VITALS: BP 125/65
--- NOTE | 2019-12-08 08:12 | EKG ---
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
--- NOTE | 2019-12-08 15:02 | NUR ---
CARE TEAM INDIATED THAT PT IS PROGRESSING SLOWLEY TOWARD GOAL OF DISCHARGE. CARE TEAM INDICATED PT IS TO GET BLOOD TOMORROW. CM TO FOLLOW INDICATED WITH DC PLANNING.
[2019-12-08 15:45] VITALS: BP 149/72
--- NOTE | 2019-12-08 16:41 | NUR ---
PT CARE ASSUMED APPROX 0700. ASSESSMENT CHARTED. PT DENIES SOA AND N/V. REPORTS ADEQUATE PAIN MANAGEMENT OF ABD PAIN. PT CONTINUED TO REQUEST DIET ADVANCES THIS SHIFT. WILL ASSESS HOW HE TOLERATES NEW REGULAR DIET. VSS. INDEPENDENT WITH TRANSFER TO [facility]. GAIT UNASSESSED AT THIS TIME. PT DENIES QUESTIONS OR CONCERNS REGARDING POC. TOLERATING POC. NO DISTRESS NOTED.
[2019-12-08 19:55] VITALS: BP 141/76
[2019-12-09 05:52] LABS: HEMATOCRIT 20.4 % (42.0-52.0); HEMOGLOBIN 6.9 gm/dL (14.0-18.0)
[2019-12-09 05:54] LABS: MCH 35.7 pg (26.0-34.0); MCHC 33.9 g/dL (28.0-37.0); MCV 105.1 fL (80.0-100.0); RBC 1.94 mil/uL (4.50-6.00); RDW 17.8 % (10.5-14.5); WBC 5.3 thou/uL (4.0-11.0)
--- NOTE | 2019-12-09 06:05 | NUR ---
Assumed pt care at 1900. A/OX4,VSS. C/o pain to abd,denies nausea medicated per EMAR with relief reported. Up with SBA to BSC;verbalizes being independent but re-educated on fall risk and agreeable with bed alarm. Edema persists to BUE/BLE,elevated on pillows. Pt c/o not peeing too much,bladder scan done with only 5ml noted post void,poor PO intake and off IV fluids for now. Continues on special contact isolation for Cdiff. Right chest port patent.Fall precautions in place,will continue to monitor pt.
[2019-12-09 06:09] LABS: CALCIUM 7.6 mg/dL (8.5-10.1); CREATININE 1.4 mg/dL (0.7-1.3); POTASSIUM 3.3 mmol/L (3.5-5.1)
[2019-12-09 06:30] LABS: FOLIC ACID 3.3 ng/mL (8.6-58.9)
[2019-12-09 08:05] VITALS: BP 139/80
--- NOTE | 2019-12-09 14:18 | NUR ---
Assumed pt care at 7am.Pt in bed resting and in isolation for c-diff. Assessment completed.vss but low k+ and h&h noted.Dr Arana aware and order noted.Pt will be having blood transfusion later this afternoon.Sister at bs visiting.Pain med given with partial relief.Will continue to monitor.
[2019-12-09 16:00] VITALS: BP 142/69
[2019-12-09 16:59] VITALS: BP 137/87; BP 138/64
[2019-12-09 20:37] VITALS: BP 161/72
[2019-12-09 20:53] LABS: HEMATOCRIT 20.8 % (42.0-52.0)
--- NOTE | 2019-12-10 05:35 | NUR ---
VSS-AFEBRILE. REMAINED ON ROOM AIR THROUGH SHIFT. C/O GENERALIZED BODY PAIN THAT IS WELL RELIEVED WITH IV MORPHINE. LARGE, BROWN, LOOSE BM. FALL PRECAUTIONS IN PLACE, CALLS APPROPRIATELY FOR ANY NEEDED ASSISTANCE.
[2019-12-10 06:42] LABS: HEMOGLOBIN 8.2 gm/dL (14.0-18.0); MCH 34.6 pg (26.0-34.0); MCHC 34.3 g/dL (28.0-37.0); RBC 2.38 mil/uL (4.50-6.00); RDW 20.7 % (10.5-14.5)
[2019-12-10 07:10] LABS: ALBUMIN 2.1 g/dL (3.4-5.0); CALCIUM 7.4 mg/dL (8.5-10.1); CREATININE 1.6 mg/dL (0.7-1.3); PHOSPHORUS 2.8 mg/dL (2.5-4.9); POTASSIUM 3.6 mmol/L (3.5-5.1)
[2019-12-10 07:56] VITALS: BP 141/83
[2019-12-10] MEDS ORDERED: FIRVANQ50 MG/1 ML PO (09:34)
[2019-12-10 10:22] VITALS: BP 161/72
--- NOTE | 2019-12-10 13:43 | NUR ---
Assumed pt care at 7am.Pt in bed very depressed with flat affect.Assessment completed.vss.Pt tolerated breakfast and am meds.Dr Arana here,dc order noted.Pt called his for ride home.Dc summary completed and reviewed with pt and sister.Noah cath heparinized prior to deactivated.At 1145,pt dc home in [place] with sister.
== END 2019-12-10 13:48 | disposition home or self-care (01) | DRG 373 ==
LOC: ER 19:08 → EROBS 12-07 00:56 → 4W 12-07 00:56 → EROBS 12-07 00:56 → 4S 12-07 03:32 → 4W 12-07 03:41
PROVIDERS: Emergency Medicine; Internal Medicine Gastroenterology; ADMIT Hospitalist; ATTEND Hospitalist
PROC: 30233N1 Transfusion of Nonautologous Red Blood Cells into Peripheral Vein, Percutaneous Approach (ICD-10-PCS; principal; 2019-12-09)
DX: A04.71 Enterocolitis due to Clostridium difficile, recurrent (principal); I25.10 Atherosclerotic heart disease of native coronary artery without angina pectoris; I10 Essential (primary) hypertension; J45.909 Unspecified asthma, uncomplicated; E78.00 Pure hypercholesterolemia, unspecified; K21.9 Gastro-esophageal reflux disease without esophagitis; K74.60 Unspecified cirrhosis of liver; F17.210 Nicotine dependence, cigarettes, uncomplicated; D72.829 Elevated white blood cell count, unspecified; E78.5 Hyperlipidemia, unspecified; B19.20 Unspecified viral hepatitis C without hepatic coma; D53.9 Nutritional anemia, unspecified; Z85.118 Personal history of other malignant neoplasm of bronchus and lung; Z95.5 Presence of coronary angioplasty implant and graft; I25.2 Old myocardial infarction; Z88.6 Allergy status to analgesic agent; Z88.1 Allergy status to other antibiotic agents; Z88.0 Allergy status to penicillin; Z88.2 Allergy status to sulfonamides; Z88.8 Allergy status to other drugs, medicaments and biological substances; Z92.21 Personal history of antineoplastic chemotherapy; Z92.3 Personal history of irradiation; Z82.49 Family history of ischemic heart disease and other diseases of the circulatory system; Z80.0 Family history of malignant neoplasm of digestive organs; Z80.8 Family history of malignant neoplasm of other organs or systems; Z80.51 Family history of malignant neoplasm of kidney; Z79.899 Other long term (current) drug therapy
CPT/HCPCS: 10040

== ENCOUNTER 2020-01-03 17:45 | Emergency (ER) | payer OTHER ==
[~2020-01-03] VITALS: Ht 177.8 cm; Wt 74.8 kg
[2020-01-03 19:31] LABS: ABSOLUTE NEUTROPHILS 10.2 thou/uL (1.4-8.2); BASOPHILS 0.7 % (0.0-2.0); EOSINOPHILS 2.2 % (0.0-3.0); HEMATOCRIT 25.5 % (42.0-52.0); HEMOGLOBIN 8.5 gm/dL (14.0-18.0); LYMPHOCYTES 9.1 % (24.0-44.0); MCH 33.5 pg (26.0-34.0); MCHC 33.1 g/dL (28.0-37.0); MCV 101.2 fL (80.0-100.0); MONOCYTES 3.9 % (1.0-8.0); PLATELET COUNT 37 thou/uL (150-400); POLYS 84.1 % (36.0-66.0); RBC 2.52 mil/uL (4.50-6.00); RDW 18.2 % (10.5-14.5); WBC 12.2 thou/uL (4.0-11.0)
[2020-01-03 19:36] LABS: CALCIUM 8.4 mg/dL (8.5-10.1); POTASSIUM 3.1 mmol/L (3.5-5.1)
[2020-01-03 19:42] LABS: ALBUMIN 2.8 g/dL (3.4-5.0); TOTAL BILIRUBIN 0.6 mg/dL (0.2-1.0); TOTAL PROTEIN 6.2 g/dL (6.4-8.2)
[2020-01-03 20:03] LABS: URINE BILIRUBIN NEGATIVE (Negative); URINE BLOOD TRACE (Negative); URINE CLARITY CLEAR; URINE COLOR YELLOW; URINE GLUCOSE-RANDOM* NEGATIVE (Negative); URINE KETONES NEGATIVE (Negative); URINE LEUKOCYTES-REFLEX NEGATIVE (Negative); URINE NITRITE-REFLEX NEGATIVE (Negative); URINE PROTEIN (DIPSTICK) 1+ (Negative); URINE UROBILINOGEN 0.2 E.U./dl (0.2-1.0)
[2020-01-03 20:05] LABS: BACTERIA-REFLEX None Seen /HPF (None Seen); CASTS None Seen /LPF (None Seen); SQUAMOUS None Seen /LPF (0-3); URINE RBC 0-2 Rare /HPF (0-2); URINE WBC-REFLEX 0-5 Rare /HPF (0-5)
[2020-01-03 20:06] LABS: CRYSTALS None Seen /LPF (None Seen)
[2020-01-03 21:46] VITALS: BP 174/93
[2020-01-03] MEDS ORDERED: VANCOCIN 125 M125 M1 PO (21:53)
== END 2020-01-03 23:44 | disposition home or self-care (01) ==
LOC: ER 17:45
PROVIDERS: Emergency Medicine
DX: A04.71 Enterocolitis due to Clostridium difficile, recurrent (principal); I10 Essential (primary) hypertension; I25.10 Atherosclerotic heart disease of native coronary artery without angina pectoris; E78.5 Hyperlipidemia, unspecified; F17.210 Nicotine dependence, cigarettes, uncomplicated; Z79.899 Other long term (current) drug therapy; Z79.01 Long term (current) use of anticoagulants; Z88.0 Allergy status to penicillin; Z88.1 Allergy status to other antibiotic agents; Z88.2 Allergy status to sulfonamides; Z88.5 Allergy status to narcotic agent; Z88.6 Allergy status to analgesic agent; Z88.8 Allergy status to other drugs, medicaments and biological substances

== ENCOUNTER 2020-02-03 17:39 | Emergency (ER) | payer OTHER ==
[~2020-02-03] VITALS: Ht 177.8 cm; Wt 70.3 kg
[~2020-02-03 17:39] MED LIST changes: +VANCOCIN 125 M125 M1 PO
[2020-02-03 18:18] LABS: HEMATOCRIT 27.5 % (42.0-52.0); MCH 33.4 pg (26.0-34.0); MCHC 32.9 g/dL (28.0-37.0); MCV 101.6 fL (80.0-100.0); RBC 2.7 mil/uL (4.50-6.00); WBC 21.4 thou/uL (4.0-11.0)
[2020-02-03 18:32] LABS: CALCIUM 9.2 mg/dL (8.5-10.1); POTASSIUM 3.1 mmol/L (3.5-5.1)
[2020-02-03] MEDS ORDERED: OXYCONTIN40 MG PO (18:56)
[2020-02-03] MEDS ORDERED: PERCOCET 10-321 EAC1 PO (18:56)
[2020-02-03 20:05] VITALS: BP 149/79
--- NOTE | 2020-02-04 09:58 | EKG ---
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: [facility] : 1965 Requested By: Saad Haque Order Number: [id number] MD: Fabien Fofana Measurements Intervals [place] Rate: 91 P: 65 [place]: 133 QRS: 30 QRSD: 82 T: -15 QT: 415 QTc: 511 Interpretive Statements Sinus rhythm Atrial premature complex Left ventricular hypertrophy Nonspecific ST and T wave abnormality Prolonged QT interval Compared to ECG 12/06/2019 19:37:04 Atrial premature complex(es) now present T-wave abnormality now present Prolonged QT interval now present Electronically Signed On 02-04-2020 9:58:31 CDT by Fabien Fofana [email or web address] <ELECTRONICALLY SIGNED> By: Fabien Fofana MD, FACC 02/04/20 0958 1754 1754 Fabien Fofana MD, FACC /EPI
== END 2020-02-03 20:15 | disposition home or self-care (01) ==
LOC: ER 17:39
PROVIDERS: Emergency Medicine
DX: K22.2 Esophageal obstruction (principal); R42 Dizziness and giddiness; I25.10 Atherosclerotic heart disease of native coronary artery without angina pectoris; B20 Human immunodeficiency virus [HIV] disease; I25.2 Old myocardial infarction; I10 Essential (primary) hypertension; E78.00 Pure hypercholesterolemia, unspecified; K21.9 Gastro-esophageal reflux disease without esophagitis; J45.909 Unspecified asthma, uncomplicated; F17.210 Nicotine dependence, cigarettes, uncomplicated; Z85.118 Personal history of other malignant neoplasm of bronchus and lung; Z79.899 Other long term (current) drug therapy; Z79.2 Long term (current) use of antibiotics; Z88.5 Allergy status to narcotic agent; Z88.8 Allergy status to other drugs, medicaments and biological substances; Z88.1 Allergy status to other antibiotic agents; Z88.0 Allergy status to penicillin; Z88.2 Allergy status to sulfonamides; Z88.6 Allergy status to analgesic agent; Z91.011 Allergy to milk products; Z88.4 Allergy status to anesthetic agent